=== PATIENT | female | born 1955 | race Caucasian/White ===

== ENCOUNTER 2017-12-25 21:51 | Emergency (ER) | payer OTHER ==
[2017-12-25 22:00] VITALS: BP 165/92; PULSE 73; TEMP 98.1; BMI 31.5
[2017-12-25 22:07] LABS: URINE APPEARANCE Cloudy; URINE BILIRUBIN Negative (NEGATIVE); URINE COLOR Yellow; URINE GLUCOSE (UA) Negative (NEGATIVE); URINE KETONE Negative (NEGATIVE); URINE LEUK ESTERASE 1+ (NEGATIVE); URINE NITRITE Positive (NEGATIVE); URINE PROTEIN 2+ (NEGATIVE); URINE UROBILINOGEN 0.2 (0.2-1.0)
[2017-12-25] MEDS ORDERED: PHENAZOPYRIDINE HCL 100 MG TABLET (FP) PO ONE (22:07)
[2017-12-25] MEDS ORDERED: IBUPROFEN 400 MG TABLET (FP) PO ONE (22:07)
[2017-12-25] MEDS ORDERED: PHENAZOPYRIDINE HCL 100 MG TABLET (FP) ONE (22:08)
--- NOTE | 2017-12-25 22:10 | PDOC ---
History of Present Illness - General Chief Complaint: Hematuria Stated Complaint: PAIN WITH URINATION/BLOOD IN URINE Time Seen by Provider: 12/25/17 21:54 - History of Present Illness Initial Comments: 12/25/17 22:08 62 F with h/o HTN, HLD, DM, presenting to ED with dysuria and hematuria x 2 days. Pt states that she started to have burning with urination yesterday. Today , it persisted and pt began to have hematuria. She denies F/C. Denies flank pain. Denies abdominal pain. Denies vaginal discharge/bleeding. Pt states that she has had one similar episode in the past and was tx'ed with abx. Past History - Past Medical History Allergies/Adverse Reactions: Allergies Allergy/AdvReac Type Severity Reaction Status Date / Time acetaminophen [From Percocet] Allergy Verified 12/25/17 21:53 oxycodone [From Percocet] Allergy Verified 12/25/17 21:53 Home Medications: Ambulatory Orders Ca/D3/Mag/Zinc/Spenser/Brando/Mgbor [Caltrate 600+D3+Min Chew Tab] 2 each PO BID 12/03 Cholecalciferol (Vitamin D3) [Vitamin D-3] 5,000 unit PO DAILY 08/28/14 Cyanocobalamin [Vitamin B12 -] 1,000 mcg PO DAILY 08/28/14 Famotidine [Pepcid -] 20 mg PO BID #30 tablet 08/28/14 Ferrous Gluconate 324 mg PO DAILY 08/28/14 Multivitamins [Multivit ([facility])] 1 tab PO DAILY 08/28/14 Nitrofurantoin Monohyd/M-Cryst [Macrobid -] 100 mg PO BID #20 capsule 08/28/14 Omeprazole [Prilosec] 20 mg PO BID 08/28/14 Phenazopyridine HCl [Pyridium] 200 mg PO TID PRN #10 tablet 08/28/14 Nitrofurantoin Monohyd/M-Cryst [Macrobid -] 100 mg PO BID #14 capsule 12/25/17 Asthma: Yes COPD: No Diabetes: Yes HTN: Yes Hypercholesterolemia: Yes - Surgical History Abdominal Surgery: Yes (GASTRIC SLEEVE) Cholecystectomy: Yes - Suicide/Smoking/Psychosocial Hx Smoking Status: No Smoking History: Former smoker Have you smoked in the past 12 months: No If you are a former smoker, when did you quit?: 22YRS Information on smoking cessation initiated: No Hx Alcohol Use: No Drug/Substance Use Hx: No Substance Use Type: None Review of Systems - Review of Systems Comments:: 12/25/17 22:09 "GENERAL/CONSTITUTIONAL: No fever or chills. No weakness. HEAD, EYES, EARS, NOSE AND THROAT: No change in vision. No ear pain or discharge. No sore throat. CARDIOVASCULAR: No chest pain, no shortness of breath, no loss of consciousness RESPIRATORY: No cough, wheezing, or hemoptysis. GASTROINTESTINAL: No nausea, vomiting, diarrhea or constipation. GENITOURINARY: + Dysuria, hematuria MUSCULOSKELETAL: No joint or muscle swelling or pain. No neck or back pain. SKIN: No rash NEUROLOGIC: No vertigo, no change in strength/sensation. ENDOCRINE: No increased thirst. No abnormal weight change. HEMATOLOGIC/LYMPHATIC: No anemia, easy bleeding, or history of blood clots. ALLERGIC/IMMUNOLOGIC: No hives or skin allergy. *Physical Exam - Vital Signs Last Vital Signs Temp Pulse Resp BP Pulse Ox 98.1 F 73 16 165/92 100 12/25/17 21:56 12/25/17 21:56 12/25/17 21:56 12/25/17 21:56 12/25/17 21:56 - Physical Exam Comments: 12/25/17 22:09 "GENERAL: Awake, alert, and fully oriented, in no acute distress. HEAD: No signs of trauma EYES: PERRLA, EOMI, sclera anicteric, conjunctiva clear ENT: Auricles normal inspection, hearing grossly normal, nares patent, oropharynx clear without exudates. Moist mucosa NECK: Nontender, no stepoffs, Normal ROM, supple, no lymphadenopathy, JVD, or masses LUNGS: Breath sounds equal, clear to auscultation bilaterally. No wheezes, and no crackles HEART: Regular rate and rhythm, normal S1 and S2, no murmurs, rubs or gallops ABDOMEN: Soft, nontender, normoactive bowel sounds. No guarding, no rebound. No masses EXTREMITIES: Normal range of motion, no edema. No clubbing or cyanosis. No cords, erythema, or tenderness NEUROLOGICAL: Cranial nerves II through XII intact. 5/5 strength and sensation in all extremities, Normal speech, normal gait, normal cerebellar function SKIN: Warm, Dry, normal turgor, no rashes or lesions noted. ED Treatment Course - ADDITIONAL ORDERS Additional order review: Laboratory Results 12/25/17 21:56 Urine Color Yellow Urine Appearance Cloudy Urine pH 7.0 Ur Specific [place] 1.020 Urine Protein 2+ H Urine Glucose (UA) Negative Urine Ketones Negative Urine Blood 3+ H Urine Nitrite Positive Urine Bilirubin Negative Urine Urobilinogen 0.2 Ur Leukocyte Esterase 1+ H Medical Decision Making - Medical Decision Making 12/25/17 22:10 62 F with dysuria and hematuria x 2 days. Likely UTI. Pt afebrile and HD stable , no signs of systemic illness. - UA, UCx - Pyridium 12/25/17 22:19 UA with + blood, nitrites, and LE, consistent with UTI Will tx with macrobid and have pt f/u with PMD Pt is well appearing, with normal vitals. Clinically stable for DC at this time. I discussed the physical exam findings, ancillary test results and final diagnoses with the patient. I answered all of the patient's questions. The patient was satisfied with the care received and felt comfortable with the discharge plan and treatment plan. The patient agrees to follow up with the primary care physician within 24-72 hours. *DC/Admit/Observation/Transfer Diagnosis at time of Disposition: Cystitis - Discharge Dispostion Disposition: HOME Condition at time of disposition: Stable - Prescriptions Prescriptions: Nitrofurantoin Monohyd/M-Cryst [Macrobid -] 100 mg PO BID #14 capsule - Referrals - Patient Instructions Printed Discharge Instructions: DI for Urinary Tract Infection (UTI) Additional Instructions: You have a urinary tract infection. Take the antibiotics as prescribed to treat it. If you experience worsening pain, fevers, blood in your urine, pain in your sides or back, or any other concerning symptoms, return to the ER immediately. Otherwise, follow up with your primary doctor within 1 week. You must have your urine re-checked once you complete the antibiotics to make sure the bleeding has cleared up. - Post Discharge Activity - Attestations Physician Attestion: 12/25/17 22:22 I, Dr. Mateo Vallejo MD, attest that this document has been prepared under my direction and personally reviewed by me in its entirety. I further attest, that it accurately reflects all work, treatment, procedures and medical decision -making performed by me.
[2017-12-25] MEDS ORDERED: LOSARTAN POTASSIUM 25 MG TABLET PO ONE (22:19)
[2017-12-25] MEDS ORDERED: NITROFURANTOIN MACROCRYSTAL 50 MG CAPSULE (FP) ONE (22:20)
[2017-12-25] MEDS ORDERED: NITROFURANTOIN MACROCRYSTAL 50 MG CAPSULE (FP) PO SCH (22:30)
[2017-12-25 22:56] LABS: URINE RBC >100 /hpf (0-3)
[2017-12-25 22:57] LABS: EPI CELLS 1+ /HPF; URINE BACTERIA 2+ /hpf (NEGATIVE)
== END 2017-12-25 22:28 | disposition home or self-care (01) ==
LOC: FER 21:51
DX: N30.91 Cystitis, unspecified with hematuria (principal); Z98.84 Bariatric surgery status; E11.9 Type 2 diabetes mellitus without complications; J45.909 Unspecified asthma, uncomplicated; E78.00 Pure hypercholesterolemia, unspecified; I10 Essential (primary) hypertension; Z87.891 Personal history of nicotine dependence
CPT/HCPCS: 81003; 81015; 87086; 87186; 99281-25

== ENCOUNTER 2020-01-02 11:04 | Inpatient (IN) | payer OTHER ==
[2020-01-02] MEDS ORDERED: ONDANSETRON 4 MG/2 ML VIAL IVPUSH ONE ×2 (11:59→13:45)
[2020-01-02] MEDS ORDERED: LIDOCAINE VISCOUS 2% ORAL/TOP 20 ML UNIT-DOSE CUP MM ONE (12:10)
[2020-01-02] MEDS ORDERED: MAG HYDROX/AL HYDROX/SIMETH -MYLANTA- ORAL SUSPENSION PO ONE (12:10)
[2020-01-02] MEDS ORDERED: FAMOTIDINE 20 MG/50 ML IVPB 20 MG/50 ML MG IVPB ONE ×2 (12:10→12:21)
[2020-01-02] MEDS ORDERED: SODIUM CHLORIDE 0.9% 500 ML INFUS.BAG IV ONE (12:10)
[2020-01-02] MEDS ORDERED: MAG HYDROX/AL HYDROX/SIMETH 30 ML UNIT-DOSE CUP ONE (12:20)
[2020-01-02] MEDS ORDERED: morphine CARPU-JECT 4 MG/1 ML DISP.SYRIN IVPUSH ONE ×2 (13:00→20:56)
[2020-01-02] MEDS ORDERED: LIDOCAINE VISCOUS 2% ORAL/TOP 20 ML UNIT-DOSE CUP ONE (13:01)
[2020-01-02 13:05] LABS: BASO % 0.4 % (0-2.0); HEMATOCRIT 34.5 % (32.4-45.2); HEMOGLOBIN 11.3 GM/dL (10.7-15.3); LYMPH % 13.4 % (8-40); MCH 27.1 pg (25.7-33.7); MCHC 32.9 g/dl (32.0-36.0); MEAN CELL VOLUME 82.6 fl (80-96); MEAN PLT VOLUME 8.7 fl (7.5-11.1); MONO % 3.4 % (3.8-10.2); NEUT % 82.8 % (42.8-82.8); PLATELET COUNT 413 K/MM3 (134-434); RBC 4.17 M/mm3 (3.60-5.2); RDW 14.7 % (11.6-15.6); WHITE BLOOD COUNT 10.1 K/mm3 (4.0-10.0)
[2020-01-02 13:29] LABS: CHLORIDE 103 mmol/L (98-107); SODIUM 138 mmol/L (136-145)
[2020-01-02 13:32] LABS: ANION GAP 9 MMOL/L (8-16); BLOOD UREA NITROGEN 11.8 mg/dL (7-18); CALCIUM 9.1 mg/dL (8.5-10.1); CO2 26 mmol/L (21-32); GLUCOSE,RANDOM 120 mg/dL (74-106); LIPASE 221 U/L (73-393)
[2020-01-02] MEDS ORDERED: morphine SULFATE 4 MG/ML VIAL IVPUSH ONE ×2 (13:33→20:24)
[2020-01-02 13:35] LABS: CREATININE 0.6 mg/dL (0.55-1.3); SGOT/AST 91 U/L (15-37); SGPT/ALT 85 U/L (13-61)
[2020-01-02] MEDS ORDERED: morphine SULFATE 4 MG/ML VIAL ONE ×3 (13:36→21:19)
[2020-01-02 13:37] LABS: BILIRUBIN,TOTAL 0.4 mg/dL (0.2-1); TOT PROT 7.4 g/dl (6.4-8.2)
[2020-01-02 13:38] LABS: ALK PHOS 55 U/L (45-117)
[2020-01-02] MEDS ORDERED: METOCLOPRAMIDE HCL INJECTION 10 MG/2 ML VIAL IVPUSH ONE (15:34)
[2020-01-02] MEDS ORDERED: METOCLOPRAMIDE HCL INJECTION 10 MG/2 ML VIAL ONE (15:37)
[2020-01-02] MEDS ORDERED: MORPHINE SULFATE 2 MG/ML VIAL IVPUSH PRN (21:25)
[2020-01-02] MEDS ORDERED: SODIUM CHLORIDE 1,000 ML IV SCH (21:30)
[2020-01-02] MEDS: INSULIN SLIDING SCALE (NOVOLOG) 1 VIAL SQ SCH (22:20)
[2020-01-02] MEDS ORDERED: MAG HYDROX/AL HYDROX/SIMETH 30 ML UNIT-DOSE CUP PO PRN (22:27)
[2020-01-02] MEDS ORDERED: METOPROLOL TARTRATE 5 MG/5 ML VIAL IVPUSH PRN (22:33)
[2020-01-02] MEDS ORDERED: METOCLOPRAMIDE HCL INJECTION 10 MG/2 ML VIAL IVPUSH PRN (23:55)
[2020-01-02] MEDS ORDERED: ONDANSETRON 4 MG/2 ML VIAL IVPUSH PRN (23:55)
[2020-01-03] MEDS ORDERED: METOPROLOL TARTRATE 5 MG/5 ML VIAL IVPUSH PRN (00:35)
[2020-01-03 04:04] VITALS: BMI 32.1
[2020-01-03] MEDS: INSULIN SLIDING SCALE (NOVOLOG) 1 VIAL SQ SCH ×3 (06:07→18:47)
[2020-01-03 07:07] LABS: BASO % 0.6 % (0-2.0); EOS % 0.1 % (0-4.5); HEMATOCRIT 31.3 % (32.4-45.2); HEMOGLOBIN 10.1 GM/dL (10.7-15.3); LYMPH % 22.8 % (8-40); MCH 26.8 pg (25.7-33.7); MCHC 32.5 g/dl (32.0-36.0); MEAN CELL VOLUME 82.5 fl (80-96); MEAN PLT VOLUME 8.4 fl (7.5-11.1); MONO % 8.2 % (3.8-10.2); NEUT % 68.3 % (42.8-82.8); PLATELET COUNT 355 K/MM3 (134-434); RBC 3.79 M/mm3 (3.60-5.2); RDW 14.7 % (11.6-15.6); WHITE BLOOD COUNT 9.7 K/mm3 (4.0-10.0)
[2020-01-03 07:27] LABS: CHLORIDE 105 mmol/L (98-107); POTASSIUM 4.1 mmol/L (3.5-5.1); SODIUM 139 mmol/L (136-145)
[2020-01-03 07:32] LABS: ALBUMIN 3.1 g/dl (3.4-5.0); CALCIUM 7.6 mg/dL (8.5-10.1)
[2020-01-03 07:33] LABS: ANION GAP 7 MMOL/L (8-16); BLOOD UREA NITROGEN 11.7 mg/dL (7-18); CO2 27 mmol/L (21-32); GLUCOSE,RANDOM 87 mg/dL (74-106); MAGNESIUM 2.2 mg/dL (1.8-2.4)
[2020-01-03 07:36] LABS: CREATININE 0.6 mg/dL (0.55-1.3); PHOSPHOROUS 3.4 mg/dL (2.5-4.9); SGOT/AST 32 U/L (15-37); SGPT/ALT 51 U/L (13-61)
[2020-01-03 07:38] LABS: BILIRUBIN,TOTAL 0.4 mg/dL (0.2-1); TOT PROT 6.2 g/dl (6.4-8.2)
[2020-01-03 07:39] LABS: ALK PHOS 37 U/L (45-117)
[2020-01-03] MEDS ORDERED: ENOXAPARIN NA (PORCINE) 40 MG/0.4 ML DISP.SYRIN SQ SCH (10:00)
[2020-01-03] MEDS ORDERED: PANTOPRAZOLE SODIUM 40 MG VIAL IVPUSH SCH (10:00)
[2020-01-03] MEDS ORDERED: FAMOTIDINE 20 MG/50 ML IVPB 20 MG/50 ML MG IVPB SCH (10:00)
[2020-01-03 13:48] VITALS: BP 107/64; PULSE 60; TEMP 98.1
== END 2020-01-03 20:47 | disposition home or self-care (01) | DRG 392 ==
LOC: JER 11:04 → JERBED 20:19 → J7W 01-03 02:39
PROVIDERS: ADMIT Hospitalist; ATTEND Internal Medicine
DX: K29.70 Gastritis, unspecified, without bleeding (principal); I10 Essential (primary) hypertension; E78.5 Hyperlipidemia, unspecified; K21.9 Gastro-esophageal reflux disease without esophagitis; J45.909 Unspecified asthma, uncomplicated; R73.03 Prediabetes; E66.9 Obesity, unspecified; G89.29 Other chronic pain; E27.9 Disorder of adrenal gland, unspecified; K76.89 Other specified diseases of liver; Z68.32 Body mass index [BMI] 32.0-32.9, adult; G62.9 Polyneuropathy, unspecified
CPT/HCPCS: 36415; 71045-TC-FY; 74177-TC; 76705-TC; 80053; 82550; 82962; 83036; 83605; 83690; 83735; 84100; 84443; 84484; 85025; 86850; 86900; 86901; 93005; 93010; 97161-GP; 99285-25; C9803; Q9967; U0003

== ENCOUNTER → 2020-06-03 | Day surgery (SDC) | payer OTHER | END | disposition home or self-care (01) | LOC: JRADIR 09:46 | PROVIDERS: ATTEND Internal Medicine Endocrinology, Diabetes & Metabolism | PROC: 0G9K3ZX Drainage of Thyroid Gland, Percutaneous Approach, Diagnostic (ICD-10-PCS; principal; 2020-06-03) | DX: E04.9 Nontoxic goiter, unspecified (principal) | CPT/HCPCS: 10005; 76942; 88173; 88305-TC ==

== ENCOUNTER 2021-03-03 16:40 | Emergency (ER) | payer MEDICARE, OTHER ==
[2021-03-03 16:51] VITALS: TEMP 99; BMI 30.2
[2021-03-03] MEDS ORDERED: LIDOCAINE 5% TOPICAL PATCH TP ONE (16:55)
[2021-03-03] MEDS ORDERED: METHOCARBAMOL 500 MG TABLET PO ONE (16:55)
[2021-03-03] MEDS ORDERED: ACETAMINOPHEN 1000 MG/100 ML BAG IVPB ONE (16:55)
[2021-03-03] MEDS ORDERED: LIDOCAINE 5% TOPICAL PATCH ONE (17:09)
[2021-03-03] MEDS ORDERED: METHOCARBAMOL 500 MG TABLET ONE ×2 (17:09→17:22)
[2021-03-03] MEDS ORDERED: ACETAMINOPHEN INJECTION 100 ML IVPB ONE (17:09)
[2021-03-03 17:33] LABS: ALBUMIN 3.9 g/dl (3.4-5.0); BILIRUBIN,TOTAL 0.9 mg/dl (0.2-1); CALCIUM 9.2 mg/dl (8.5-10); CREATININE 0.7 mg/dl (0.55-1.3); TOT PROT 6.9 g/dl (6.4-8.2)
[2021-03-03 18:49] LABS: BASO % 0.8 % (0-2.0); EOS % 4.8 % (0-4.5); HEMATOCRIT 33.6 % (32.4-45.2); HEMOGLOBIN 11.1 GM/dL (10.7-15.3); LYMPH % 35.4 % (8-40); MCH 26.7 pg (25.7-33.7); MCHC 33.1 g/dl (32.0-36.0); MEAN CELL VOLUME 80.7 fl (80-96); MONO % 7.5 % (3.8-10.2); NEUT % 51.5 % (42.8-82.8); PLATELET COUNT 502 10^3/uL (134-434); RBC 4.17 M/mm3 (3.60-5.2); RDW 14.6 % (11.6-15.6); WHITE BLOOD COUNT 8.4 K/mm3 (4.0-10.0)
[2021-03-03 19:44] VITALS: BP 132/63; PULSE 76
[2021-03-03] MEDS ORDERED: LIDOCAINE PATCH REMOVAL MC SCH (22:00)
== END 2021-03-03 20:09 | disposition home or self-care (01) ==
LOC: FER 16:40
PROC: 3E0333Z Introduction of Anti-inflammatory into Peripheral Vein, Percutaneous Approach (ICD-10-PCS; principal; 2021-03-03)
DX: N28.1 Cyst of kidney, acquired (principal); N20.0 Calculus of kidney; R10.9 Unspecified abdominal pain
CPT/HCPCS: 36415; 74177-TC; 80053; 81003; 81015; 85025; 87077; 87086; 93005; 96374; 99285-25; J0131; Q9967

== ENCOUNTER 2022-12-14 19:50 | Emergency (ER) | payer MEDICARE, OTHER ==
[2022-12-14 20:01] VITALS: RESP 19; TEMP 97.5; BMI 34.4
[2022-12-14] MEDS ORDERED: SODIUM CHLORIDE 1,000 ML IV STA (20:53)
[2022-12-14] MEDS ORDERED: KETOROLAC TROMETHAMINE 30 MG/1 ML VIAL IVPUSH ONE (20:53)
[2022-12-14] MEDS ORDERED: KETOROLAC TROMETHAMINE 15 MG/ML VIAL ONE (21:05)
[2022-12-14 21:13] LABS: HEMATOCRIT 35.9 % (32.4-45.2); HEMOGLOBIN 11.2 G/dL (10.7-15.3); MCH 22.9 pg (25.7-33.7); MCHC 31.1 g/dl (32.0-36.0); MEAN CELL VOLUME 73.8 fl (80-96); MEAN PLT VOLUME 8.3 fl (7.5-11.1); PLATELET COUNT 512.5 10^3/uL (134-434); RBC 4.86 10^6/uL (3.60-5.2); RDW 19.6 % (11.6-15.6); WHITE BLOOD COUNT 7.6 10^3/uL (4.0-10.8)
[2022-12-14 21:32] LABS: PLATELET ESTIMATE SLT INCREASE
[2022-12-14 21:36] LABS: ALBUMIN 4.3 g/dl (3.4-5.0); BILIRUBIN,TOTAL 0.2 mg/dl (0.2-1); CALCIUM 9.4 mg/dl (8.5-10.1); POTASSIUM 4.8 mmol/L (3.5-5.1); TOT PROT 7.1 g/dl (6.4-8.2)
[2022-12-14 22:56] VITALS: BP 154/77; PULSE 64
[2022-12-15] MEDS ORDERED: METHOCARBAMOL 500 MG TABLET ONE (00:14)
== END 2022-12-15 00:21 | disposition home or self-care (01) ==
LOC: FER 19:50
PROC: 3E0333Z Introduction of Anti-inflammatory into Peripheral Vein, Percutaneous Approach (ICD-10-PCS; principal; 2022-12-14)
PROC: 3E0337Z Introduction of Electrolytic and Water Balance Substance into Peripheral Vein, Percutaneous Approach (ICD-10-PCS; 2022-12-14)
DX: R10.31 Right lower quadrant pain (principal); M54.6 Pain in thoracic spine
CPT/HCPCS: 36415; 71046-TC-FY; 80053; 81003; 81015; 85027; 87086; 96361; 96374; 99284-25

== ENCOUNTER 2023-03-30 08:11 | Day surgery (SDC) | payer MEDICARE, OTHER ==
[2023-03-26 11:37] VITALS: BMI 31.9
[2023-03-30 09:59] VITALS: RESP 16; TEMP 98.5
[2023-03-30 10:35] VITALS: BP 125/69; PULSE 72
== END 2023-03-30 10:22 | disposition home or self-care (01) ==
LOC: FASU-ENDO 08:11
PROVIDERS: ATTEND Internal Medicine Gastroenterology
PROC: 0DB68ZX Excision of Stomach, Via Natural or Artificial Opening Endoscopic, Diagnostic (ICD-10-PCS; 2023-03-30)
PROC: 0DB48ZX Excision of Esophagogastric Junction, Via Natural or Artificial Opening Endoscopic, Diagnostic (ICD-10-PCS; 2023-03-30)
PROC: 0DB98ZX Excision of Duodenum, Via Natural or Artificial Opening Endoscopic, Diagnostic (ICD-10-PCS; principal; 2023-03-30 09:39)
DX: K29.50 Unspecified chronic gastritis without bleeding (principal); K21.00 Gastro-esophageal reflux disease with esophagitis, without bleeding; R10.13 Epigastric pain
CPT/HCPCS: 88305-TC; 88342-TC

== ENCOUNTER → 2023-05-29 | Day surgery (SDC) | payer MEDICARE, OTHER | END | disposition home or self-care (01) | LOC: JRADIR 09:07 | PROVIDERS: ATTEND Family Medicine | PROC: 0G9H3ZX Drainage of Right Thyroid Gland Lobe, Percutaneous Approach, Diagnostic (ICD-10-PCS; principal; 2023-05-29) | DX: E04.1 Nontoxic single thyroid nodule (principal) | CPT/HCPCS: 10005; 76942; 88173; 88305-TC ==

== ENCOUNTER 2023-08-28 08:53 | Day surgery (SDC) | payer MEDICARE, OTHER ==
[2023-08-21 10:54] VITALS: BMI 36.3
[2023-08-28 10:29] VITALS: RESP 16; TEMP 97.7
[2023-08-28 10:45] VITALS: BP 126/77; PULSE 80
== END 2023-08-28 11:14 | disposition home or self-care (01) ==
LOC: FASU-ENDO 08:53
PROVIDERS: ATTEND Internal Medicine Gastroenterology
PROC: 0DJD8ZZ Inspection of Lower Intestinal Tract, Via Natural or Artificial Opening Endoscopic (ICD-10-PCS; principal; 2023-08-28 10:01)
DX: Z12.11 Encounter for screening for malignant neoplasm of colon (principal); Z86.010 Personal history of colon polyps; K64.1 Second degree hemorrhoids; K57.30 Diverticulosis of large intestine without perforation or abscess without bleeding